=== PATIENT | male | born 1950 | race Caucasian/White ===

== ENCOUNTER → 2024-03-24 | Outpatient (REF) | payer MEDICARE, OTHER | LOC: M LAB REF 17:30 | PROVIDERS: ATTEND Nurse Practitioner Family | DX: E73.9 Lactose intolerance, unspecified (principal) ==

== ENCOUNTER → 2024-06-23 | Outpatient (CLI) | payer MEDICARE, OTHER ==
[2024-06-23 16:04] LABS: BASO # 0.1 10^3/uL (0.0-0.2); BASO % 0.9 % (0.0-1.0); EOS # 0.2 10^3/uL (0.0-0.5); EOS % 3.8 % (0.0-3.0); HEMATOCRIT 42.3 % (42.0-52.0); HEMOGLOBIN 13.8 g/dl (13.5-17.5); LYMPH # 1.2 10^3/uL (1.5-5.0); LYMPH % 19.6 % (24.0-44.0); MEAN CORPUSCULAR HEMOGLOBIN 32.8 pg (27.0-33.0); MEAN CORPUSCULAR HGB CONC 32.6 g/dl (32.0-36.5); MEAN CORPUSCULAR VOLUME 100.5 fl (80.0-96.0); MONO # 0.6 10^3/uL (0.0-0.8); MONO % 9.9 % (2.0-8.0); NEUTROPHILS # 4.1 10^3/uL (1.5-8.5); NEUTROPHILS % 64.9 % (36.0-66.0); PLATELET COUNT, AUTOMATED 184 10^3/uL (150-450); RED BLOOD COUNT 4.21 10^6/uL (4.30-6.10); WHITE BLOOD COUNT 6.3 10^3/uL (4.0-10.0)
[2024-06-23 16:42] LABS: BLOOD UREA NITROGEN 22 MG/DL (9-23); CARBON DIOXIDE LEVEL 30 MMOL/L (20-31); CHLORIDE LEVEL 105 MMOL/L (98-107); CREATININE FOR GFR 0.87 MG/DL (0.70-1.30); GLOMERULAR FILTRATION RATE > 60.0 (>42); GLUCOSE, FASTING 58 MG/DL (74-106); MAGNESIUM LEVEL 2.2 MG/DL (1.8-2.4); POTASSIUM SERUM 4.5 MMOL/L (3.5-5.1); SODIUM LEVEL 142 MMOL/L (136-145); TOTAL 25(OH) VITAMIN D 46.8 NG/ML (20.0-100.0)
== END ==
LOC: M PLALAB 12:11
PROVIDERS: ATTEND Internal Medicine
DX: I27.24 Chronic thromboembolic pulmonary hypertension (principal); R60.1 Generalized edema; R79.9 Abnormal finding of blood chemistry, unspecified; E55.9 Vitamin D deficiency, unspecified; R97.20 Elevated prostate specific antigen [PSA]

== ENCOUNTER → 2024-06-23 | Outpatient (CLI) | payer MEDICARE, OTHER | LOC: M PLALAB 12:15 | PROVIDERS: ATTEND Nurse Practitioner Family | DX: R97.20 Elevated prostate specific antigen [PSA] (principal) ==

== ENCOUNTER → 2024-12-21 | Outpatient (REF) | payer MEDICARE, OTHER ==
[2024-12-21 18:57] LABS: CK-MB VALUE MASS 1.3 NG/ML (<3.6)
[2024-12-21 19:00] LABS: CPK CREATINE PHOSPHOKINASE 29.0 U/L (46-171); MB/CK RELATIVE INDEX 4.48 (< OR =4)
== END ==
LOC: M LAB REF 17:50
PROVIDERS: ATTEND Nurse Practitioner Family
DX: R60.9 Edema, unspecified (principal); R06.02 Shortness of breath

== ENCOUNTER → 2024-12-26 | Outpatient (REF) | payer MEDICARE, OTHER | LOC: M LAB REF 14:59 | PROVIDERS: ATTEND Nurse Practitioner Family | DX: R19.7 Diarrhea, unspecified (principal) ==

== ENCOUNTER → 2025-02-02 | Outpatient (REF) | payer MEDICARE, OTHER ==
[2025-02-02 16:06] LABS: IRON (FE) 56.0 UG/DL (65-175); PERCENT SATURATION 18.6 % (19.7-50.0)
== END ==
LOC: M LAB REF 14:53
PROVIDERS: ATTEND Nurse Practitioner Family
DX: D64.9 Anemia, unspecified (principal)